=== PATIENT | female | born 1935 | race Caucasian/White ===

== ENCOUNTER → 2017-04-19 | Outpatient (CLI) | payer MEDICARE, BC ==
--- NOTE | 2017-04-19 10:25 | RAD ---
Lumbar spine, 3 views, 04/19/2017: History: Low back and hip pain There is a minimal lumbar scoliosis. The lumbar vertebral heights are well-maintained. There is partial sacralization of the right transverse process at L5. There is mild narrowing of multiple disc spaces with mild scattered marginal spurs. There are moderate degenerative changes involving the facet joints in the lower lumbar spine. There is a mild associated grade 1 spondylolisthesis at L4-5. There also appears to be mild reverse spondylolisthesis at T11-12. IMPRESSION: 1. Mild to moderate multilevel degenerative disc disease. 2. Mild spondylolisthesis at L4-5 due to moderate lower lumbar facet joint arthropathy. 3. Mild reverse spondylolisthesis at T11-12.
== END | disposition home or self-care (01) ==
LOC: DXRADRC 09:47
PROVIDERS: ATTEND Nurse Practitioner Family
DX: M51.36 Other intervertebral disc degeneration, lumbar region (principal); M43.16 Spondylolisthesis, lumbar region; Z91.81 History of falling; M25.552 Pain in left hip
CPT/HCPCS: 72100

== ENCOUNTER → 2018-10-25 | Outpatient (CLI) | payer MEDICARE ==
--- NOTE | 2018-10-25 15:33 | RAD ---
RENAL COMPLETE BILATERAL: 10/25/2018 1:00 PM Indication: 82 years old Female. Family history of polycystic kidneys. Comparison: None. FINDINGS: Sonographic evaluation of kidneys is performed utilizing grayscale and color Doppler. Right kidney: Size: 9.4 x 4.6 x 4.0cm. Collecting System: No hydronephrosis. No renal calculi detected. Parenchyma: Normal echotexture and morphology. No focal contour deforming renal mass. Left kidney: Size: 9.4 x 4.6 x 4.4cm. Collecting System: No hydronephrosis. No renal calculi detected. Parenchyma: Normal echotexture and morphology. No focal contour deforming renal mass. Urinary bladder: Unremarkable. Prevoid: 413 cc; postvoid 12 cc Left adnexal cystic lesion is identified with internal debris which may represent hemorrhagic cyst or endometrioma measuring 5.9 x 6.3 cm. Further evaluation with dedicated pelvic ultrasound is recommended. IMPRESSION: 1. Normal sonographic appearance of the kidneys. 2. 5.9 x 6.3 cm cystic left adnexal lesion may represent hemorrhagic cyst or endometrioma. Cystic neoplasm is a differential consideration. Further evaluation with pelvic ultrasound or MRI may be of benefit. Electronically signed by: Natali Anthony MD (10/25/2018 3:29 PM) [id number]
== END | disposition home or self-care (01) ==
LOC: US 12:47
PROVIDERS: ATTEND Family Medicine
DX: Z03.89 Encounter for observation for other suspected diseases and conditions ruled out (principal); R19.09 Other intra-abdominal and pelvic swelling, mass and lump; Z82.71 Family history of polycystic kidney
CPT/HCPCS: 76770

== ENCOUNTER → 2018-11-20 | Outpatient (CLI) | payer MEDICARE ==
--- NOTE | 2018-11-20 12:10 | RAD ---
Pelvic ultrasound, 11/20/2018: HISTORY: Pelvic cyst identified on renal ultrasound Transabdominal and transvaginal scans were obtained. The uterus measures 5.6 x 4.6 x 3.1 cm. A normal thin central uterine echo complex is seen. The myometrial echo pattern is heterogeneous. Several myometrial calcifications are evident. There are at least 2 small hypoechoic myometrial masses suggesting fibroids. The largest of these measures 2.0 cm. There is a large 7.3 x 5.0 x 5.5 cm cyst in the left adnexa. Its pond are smooth. No significant soft tissue component or septations are evident. There is a small 1.4 cm structure along the medial margin of this cyst which probably represents the left ovary. There is blood flow in the presumed ovary. The right ovary was not visualized. No free fluid is evident in the pelvis. IMPRESSION: 1. Large smooth left adnexal cyst suggesting an ovarian or paraovarian cyst. No highly suspicious ultrasound features are evident. Sonographic follow-up is suggested. 2. Small uterine fibroids. Electronically signed by: Kishan Harris MD (11/20/2018 12:06 PM) [facility]
== END | disposition home or self-care (01) ==
LOC: US 09:45
PROVIDERS: ATTEND Family Medicine
DX: D25.9 Leiomyoma of uterus, unspecified (principal)
CPT/HCPCS: 76830; 76856

== ENCOUNTER → 2019-03-04 | Outpatient (CLI) | payer MEDICARE ==
--- NOTE | 2019-03-04 16:19 | RAD ---
Transabdominal sonography of the pelvis Clinical indications: Follow-up of left ovarian cyst. COMPARISON: November 20, 2018. FINDINGS: Uterus is anteverted in position. The longitudinal and AP and transverse dimensions of the uterus are 7.47 m and 3.5 cm and 3.7 cm respectively. No uterine mass or fibroid is seen. The endometrial canal measures 2 mm in thickness which is normal. Within the left adnexa, there is a dominant cyst measuring 7.7 cm x 5.8 cm x 6.7 cm in size. No associated ovarian parenchyma is seen around it although this could represent a cyst completely replacing the left ovary. No hyperemia is seen around the cyst. The right ovary is not visualized. No adnexal mass is seen on this side. No free fluid is evident. IMPRESSION: Simple appearing left adnexal cyst measuring 7.7 cm x 5.8 cm x 6.7 cm today. This cyst measured 7.1 cm x 5.7 cm x 6.1 cm previously. Therefore, there is a slight increase in size. Electronically signed by: Ricardo Gaston MD (03/04/2019 4:16 PM) [email or web address]
== END | disposition home or self-care (01) ==
LOC: US 09:40
PROVIDERS: ATTEND Family Medicine
DX: N94.89 Other specified conditions associated with female genital organs and menstrual cycle (principal)
CPT/HCPCS: 76856

== ENCOUNTER → 2019-03-25 | Outpatient (CLI) | payer MEDICARE ==
[2019-03-26 00:06] LABS: CA 125 13.6 U/mL (0.0-38.1)
== END | disposition home or self-care (01) ==
LOC: LAB 15:58
PROVIDERS: ATTEND Obstetrics & Gynecology
DX: N83.202 Unspecified ovarian cyst, left side (principal)
CPT/HCPCS: 36415; 86304; 86305

== ENCOUNTER → 2019-06-11 | Outpatient (CLI) | payer MEDICARE ==
--- NOTE | 2019-06-11 14:09 | RAD ---
Pelvic ultrasound, transabdominal and transvaginal 06/11/2019 INDICATION: Left adnexal cyst COMPARISON STUDY: Pelvic ultrasound March 04, 2019 Discussion: Ultrasound evaluation of the pelvis performed transabdominally and transvaginally. Static images are submitted to PACS. There is a cystic mass in the left adnexa measuring up to 7.8 cm in diameter. Apparent thin septations are seen on today's exam, not previously well seen. No definitive nodular component is identified. Small amount of ovarian parenchyma adjacent to this cyst appears to be present. The uterus measures 5.9 x 4 point to a 3.4 cm. Small amount of fluid appears to be present in the endometrial cavity. The endometrium measures up to 6 mm in thickness. IMPRESSION: 1. Continued mild interval increase in cystic mass in the left adnexa measuring up to 7.8 cm in diameter. Some thin septations appear to be present. Consider MRI or surgical evaluation. 2. Small amount of fluid in the endometrium. Endometrium measured at 6 mm in thickness. Correlation with vaginal bleeding and/or hormonal replacement therapy. Gynecological consultation recommended. Electronically signed by: Hunter Barrientos MD (06/11/2019 2:07 PM) [id number]
== END | disposition home or self-care (01) ==
LOC: US 10:43
PROVIDERS: ATTEND Obstetrics & Gynecology
DX: N85.8 Other specified noninflammatory disorders of uterus (principal)
CPT/HCPCS: 76830; 76856

== ENCOUNTER → 2021-06-20 | Outpatient (CLI) | payer MEDICARE ==
--- NOTE | 2021-06-21 17:08 | RAD ---
EXAM: Unilateral digital 3-D screening mammography, left. HISTORY: Personal history of right breast cancer status post mastectomy. Routine left surveillance. TECHNIQUE: Bilateral full field digital images were obtained in CC and MLO projections. Computer-aide d detection was applied. COMPARISON: 02/17/2016. COMPOSITION: B. There are scattered areas of fibroglandular density. FINDINGS: There are no suspicious masses, microcalcifications or architectural distortion. The parenc hymal pattern is stable. Scattered and coarse calcifications are benign. BI-RADS CATEGORY 2: Benign. RECOMMENDATION: 1. Routine screening mammography in one year. If mammography demonstrates dense breast tissue (heterogenously dense or extremely dense, category C or D), which could hide abnormalities, and if other risk factors for breast cancer have been identifi ed, supplemental screening tests that may be suggested by the ordering physician may be of benefit. D ense breast tissue, in and of itself, is a relatively common condition. Therefore, this information i s not provided to cause undue concern, but rather to raise awareness and to promote discussion with t he referring physician regarding the presence of other risk factors, in addition to dense breast tiss ue. The results of this mammography examination is provided to the patient and referring physician. T he patient should contact their referring physician if any questions or concerns exist regarding this report. PQRS compliance statement - Patient information was entered into a reminder system with a target due date for the next mammogram. "Our facility is accredited by the [employer] Mammography Program." Electronically signed by: Luis Venegas MD (06/21/2021 5:06 PM) [id number]
== END ==
LOC: MAMMO 09:24
PROVIDERS: ATTEND Family Medicine
DX: Z12.31 Encounter for screening mammogram for malignant neoplasm of breast (principal); Z85.3 Personal history of malignant neoplasm of breast; Z90.11 Acquired absence of right breast and nipple
CPT/HCPCS: 77063; 77067